=== PATIENT | male | born 1965 | race Two or more races ===

== ENCOUNTER 2018-11-11 16:10 | Emergency (ER) | payer OTHER ==
[~2018-11-11] VITALS: Ht 188 cm; Wt 87.5 kg
[2018-11-11] MEDS ORDERED: ASPIR-LOW81 MG (16:44)
[2018-11-11] MEDS ORDERED: LIPITOR80 MG (16:44)
== END 2018-11-11 19:14 | disposition home or self-care (01) ==
LOC: ER 16:10 → CPU-OBS 16:14 → ER 19:14
DX: R07.89 Other chest pain (principal)